=== PATIENT | female | born 1970 | race Caucasian/White ===

== ENCOUNTER 2017-09-10 23:57 | Emergency (ER) | payer OTHER ==
[2017-09-11] MEDS ORDERED: Lidocaine 1% PF 5 ML VIAL ONE (00:11)
[2017-09-11] MEDS ORDERED: Acetaminophen 500 MG TAB ONE (00:31)
[2017-09-11] MEDS ORDERED: Clindamycin 150 MG CAP ONE (00:31)
[2017-09-11] MEDS ORDERED: Adacel (T-DAP) 0.5 ML VIAL ONE (00:34)
== END 2017-09-11 00:58 | disposition home or self-care (01) ==
LOC: ERS 23:57
DX: L02.413 Cutaneous abscess of right upper limb (principal); L03.113 Cellulitis of right upper limb; G43.909 Migraine, unspecified, not intractable, without status migrainosus; J44.9 Chronic obstructive pulmonary disease, unspecified; F25.9 Schizoaffective disorder, unspecified; F31.9 Bipolar disorder, unspecified; F41.9 Anxiety disorder, unspecified
CPT/HCPCS: 10060; 90471; 90715; J2001

== ENCOUNTER 2018-02-17 08:25 | Inpatient (IN) | payer OTHER ==
[~2018-02-17 08:25] MED LIST: Glycopyrrolate 0.2 MG/ML 5 ML SYRINGE ONE; Lidocaine 1% PF 5 ML VIAL ONE; Ondansetron HCl/PF 4 MG/2 ML Vial ONE; PHENYLEPHRINE-NS 100 MCG/ML 10 ML SYRINGE ONE; Propofol 200 MG/20 ML VIAL ONE; Succinylcholine Chloride 20 MG/ML 10 ml SYRINGE FS ONE
[2018-02-17] MEDS ORDERED: Morphine 4 MG/ML VIAL ONE ×2 (09:11→10:47)
[2018-02-17] MEDS ORDERED: Ondansetron HCl/PF 4 MG/2 ML Vial ONE (09:21)
--- NOTE | 2018-02-17 11:02 | RAD ---
PORTABLE CHEST: Date: 02/17/18 COMPARISON: 06/11/15 study. HISTORY: Preop. FINDINGS: Heart size is within normal limits for portable technique. Mediastinal structures are unremarkable. L ungs are clear of infiltrates. IMPRESSION: No active intrathoracic disease. POS: [facility]
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
[2018-02-17] MEDS ORDERED: Fentanyl 100 MCG/2 ML VIAL ONE (12:32)
[2018-02-17] MEDS ORDERED: Lorazepam 2 MG/ML VIAL ONE (12:39)
[2018-02-17] MEDS ORDERED: Ondansetron ODT 4 MG TAB PO PRN (13:09)
[2018-02-17] MEDS ORDERED: Acetaminophen 325 MG TAB PO PRN (13:09)
[2018-02-17] MEDS ORDERED: Sodium Chloride 0.9% 1,000 ML IV SCH (13:15)
[2018-02-17] MEDS ORDERED: Nicotine 21 MG PATCH TD SCH (13:15)
[2018-02-17] MEDS ORDERED: Chlorhexidine Gluconate 15 ML UDCUP SSP ONE (13:16)
[2018-02-17] MEDS ORDERED: Fentanyl 250 MCG/5 ML VIAL ONE (13:18)
[2018-02-17] MEDS ORDERED: Lidocaine 2% w/Epinephrine 1:200K 20 ML VIAL ONE (13:34)
[2018-02-17 14:06] LABS: Hemoglobin A1c 10.7 % (4.0-6.0)
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
[2018-02-17] MEDS ORDERED: Bacitracin Zinc Ointment 30 gm TUBE ONE (14:54)
[2018-02-17] MEDS ORDERED: busPIRone HCl 5 MG TAB PO SCH (15:00)
[2018-02-17] MEDS ORDERED: Promethazine HCl 25 MG/ML VIAL IM PRN (15:29)
[2018-02-17] MEDS ORDERED: Ondansetron HCl/PF 4 MG/2 ML Vial IVP PRN (15:29)
[2018-02-17] MEDS ORDERED: Promethazine HCl 25 MG/ML VIAL SLOW IVP PRN (15:29)
--- NOTE | 2018-02-17 15:57 | OP ---
DATE OF PROCEDURE: 02/17/2018 PREOPERATIVE DIAGNOSES: 1. Facial abscess and cellulitis. 2. Dental decay. 3. Periodontal disease. POSTOPERATIVE DIAGNOSES: 1. Facial abscess and cellulitis. 2. Dental decay. 3. Periodontal disease. PROCEDURES PERFORMED: 1. Extraoral incision and drainage of right facial abscess. 2. Simple extraction of teeth numbers 3, 5, 6, 29, 30, and 31. ANESTHESIA: General, oral endotracheal anesthesia. INDICATIONS FOR PROCEDURE: This is a 47-year-old female with a 24-hour history of progressive facial swelling after reported popping a pimple on her right face. A CT scan revealed extensive right faci al cellulitis. laboratory data revealed a white blood cell count of 19 and a glucose level of 300. During her observation in the ER before admission was reported significant increase in extension of s welling and erythema with palpable fluctuance indicating the surgical intervention. The risks, benef its, and alternatives of the procedure were discussed in detail with the patient. Questions were andreia ght and answered. She agreed and consented to incision and drainage of facial abscess and extraction of indicated teeth. PROCEDURE PERFORMED: The patient was transferred to operating room by Anesthesia nursing to the [facility] where a safety belt was secured, standard ASA monitor attached and this patient was noted to hav e stable vital signs. IV induction by Anesthesia with oral endotracheal intubation without complicat ion, was performed using a GlideScope. The tube was secured in a standard fashion. The patient was prepped and draped in a sterile fashion. A timeout was performed. I began by thoroughly suctioning the oropharynx and moistened Ray-Brandon throat pack was placed. Peride x mouth rinse was used throughout the oral cavity and an elevator and rongeur were used for extractio n of retained roots of teeth numbers 3, 5, 6, 29, 30, and 31. There was no noted purulence from any of the sockets were associated gingival inflammation. There was palpable edema high within the maxil sergey vestibule and a 15 blade was used for horizontal incision with blunt subperiosteal dissection wi th no purulence in this plane. We then went extraorally where a 15 blade was used to make a stab inc ision over the scab that was present on the previous reported popped pimple on the right malar eminen ce with immediate purulence from the wound. This was cultured. Then, blunt dissection with a closed hemostat was gently performed with significant amount of purulence from the right buccal soft tissue s. Copious irrigation of the wound was performed. A 15 blade was then used again intraorally in the right buccal mucosa well away from Stensen's duct with blunt lateral dissection without any purulent drainage. The oropharynx was thoroughly suctioned. A moistened Ray-Brandon throat pack was removed. G auze pack was placed for hemostasis of the extraction sites and quarter inch gauze soaked in bacitrac in was packed within the extraoral facial wound. This concluded the procedure. The patient was turn ed away to Anesthesia where she was extubated in the room and returned to the PACU in stable conditio n. DRAINS: None. SPECIMENS: Aerobic and anaerobic cultures sent from facial abscess. COUNTS: Needle, sponge count verified as correct. COMPLICATIONS: None. FLUIDS: Blood loss. See anesthesia records.
[2018-02-17] MEDS ORDERED: Dextrose 5% in Water 1,000 ML IV PRN (17:12)
[2018-02-17] MEDS ORDERED: Albuterol Sulfate 1.25 MG/3 ML NEB NEB PRN (17:12)
[2018-02-17] MEDS ORDERED: Dextrose 50% Abboject 50 ML SYRINGE SLOW IVP PRN (17:12)
[2018-02-17 17:22] VITALS: BMI 38.3
[2018-02-17] MEDS ORDERED: metFORMIN 500 MG TAB PO SCH (17:45)
[2018-02-17] MEDS ORDERED: FLU VACC QS2017-18 36 mo. & older 0.5 ML SYRINGE IM ONE (18:00)
[2018-02-17] MEDS ORDERED: Ibuprofen 800 MG TAB PO SCH (18:45)
[2018-02-17] MEDS: Chlorhexidine Gluconate 15 ML UDCUP SSP SCH (20:12)
[2018-02-18] MEDS ORDERED: Vancomycin HCl 1 GM in Premix Bag 1 BAG IVPB SCH (01:00)
[2018-02-18 05:27] LABS: #Basophils 0.1 thou/uL (0.0-0.2); #Eosinphils 0.2 thou/uL (0.0-0.7); #Lymphocytes 2.7 thou/uL (1.20-3.40); #Monocytes 1.7 thou/uL (0.11-0.59); #Neutrophils 11.4 thou/uL (1.40-6.50); %Basophils 0.6 % (0.0-1.0); %Eosinophils 1.4 % (0.0-10.0); %Monocytes 10.2 % (0.0-10.0); %Neutrophils 70.8 % (42.0-75.0); Hemoglobin 12.2 g/dL (12.0-16.0); Mean Corpuscular HGB CONC 33.1 g/dL (32.0-36.0); Mean Corpuscular Hemoglobin 30.1 pg (27.0-31.0); Mean Corpuscular Volume 90.8 fl (81.0-99.0); Mean Platelet Volume 8.8 fL (7.4-10.4); Platelet Count 227 thou/uL (130-400); RBC Distribution Width 12.7 % (11.5-14.5); Red Blood Cell (RBC) Count 4.05 mill/uL (4.20-5.40); White Blood Cell (WBC) Count 16.2 thou/uL (4.8-10.8)
[2018-02-18 05:31] LABS: Anion Gap 9 mmol/L (10-20); BUN (Urea Nitrogen) 9 mg/dL (7.0-18.7); Calc. Creatinine Clearance 148 mL/min (70-130); Calcium 9.1 mg/dL (7.8-10.44); Carbon Dioxide 30 mmol/L (22-29); Chloride 100 mmol/L (98-107); Estimated GFR-MDRD 86; Glucose 164 mg/dL (70-105); Potassium 3.4 mmol/L (3.5-5.1); Sodium 136 mmol/L (136-145)
--- NOTE | 2018-02-18 06:48 | PDOC.FM ---
- Subjective Subjective: Patient is restless this morning. She reports moderate pain all over. She denies significant draining or bleeding in her mouth. New diagnosis of diabetes was discussed in length. All questions answered. DENNIS. - Objective MAR Reviewed: Yes Vital Signs & Weight: Vital Signs (12 hours) Temp Pulse Resp BP Pulse Ox 02/18/18 04:00 98.4 F 87 20 107/69 94 L 02/18/18 00:00 99.3 F 93 20 105/75 95 02/17/18 20:10 94 02/17/18 20:00 99.7 F H 94 20 119/72 95 Weight Weight 98.2 kg I&O: 02/16/18 02/17/18 02/18/18 06:59 06:59 06:59 Intake Total 1999 Balance 1999 Result Diagrams: 02/18/18 04:54 02/18/18 04:54 Phys Exam - Physical Examination restless, in pain continued facial swelling with bandage in place, no purulent drainage from either incision Respiratory: no rales mild expiratory wheezing at bases Cardiovascular: RRR, no significant murmur Gastrointestinal: soft, non-tender, no distention Musculoskeletal: no edema Neurological: moves all 4 limbs Psychiatric: A&O x 3 Dx/Plan (1) Sepsis Code(s): A41.9 - SEPSIS, UNSPECIFIED ORGANISM Status: Acute (2) Facial cellulitis Code(s): L03.211 - CELLULITIS OF FACE Status: Acute (3) Abscess of face Code(s): L02.01 - CUTANEOUS ABSCESS OF FACE Status: Acute (4) Hypertension Code(s): I10 - ESSENTIAL (PRIMARY) HYPERTENSION Status: Chronic (5) Bipolar disorder Code(s): F31.9 - BIPOLAR DISORDER, UNSPECIFIED Status: Chronic (6) Schizoaffective disorder Code(s): F25.9 - SCHIZOAFFECTIVE DISORDER, UNSPECIFIED Status: Chronic (7) Chronic obstructive pulmonary disease Status: Chronic (8) Gastroesophageal reflux disease Code(s): K21.9 - GASTRO-ESOPHAGEAL REFLUX DISEASE WITHOUT ESOPHAGITIS Status: Chronic - Plan Plan: Sepsis 2/2 Facial Cellulitis and Possible Abscess - Patient failed outpatient Clindamycin, will continue Vancomycin for MRSA coverage. - s/p surgical I&D with Dr. Charles - WBC elevated to 19, downtrending with WBC of 16 today - Blood cx pending, wound culture pending - Nasal swab pending for MRSA colonization with recent hx of shoudler abscess as well. - Pain management with Ibuprofen and [place]. - s/p 2L bolus of NS, continue NS @ 150 New Diagnosis of T2DM - HgA1c 10.7 - SSI ordered but none given - overnight BS of 389 at its peak. 164 this morning - plan to start Levemir this am - consult laboratory technician for diabetic education - ACHS accuchecks COPD - not currently on any home inhalers - normal lung exam - will give albuterol prn MAG - not on CPAP at home but reports she is supposed to be - CPAP ordered Bipolar DO/Schizophrenia - patient sees [facility] for her behavioral health, but has not been on any meds since 08/2017 - Continue Buspar and monitor GERD - continue home protonix Tobacco Use - claims counsel on cessation
[2018-02-18] MEDS ORDERED: Venlafaxine HCl XR 75 MG CAP PO SCH (09:00)
[2018-02-18] MEDS: HYDROcodone/Acetaminophen 5/325 mg Tablet PO PRN ×3 (09:21→17:29)
[2018-02-18] MEDS: metFORMIN 500 MG TAB PO SCH ×2 (09:23→16:08)
[2018-02-18] MEDS: Chlorhexidine Gluconate 15 ML UDCUP SSP SCH ×2 (09:24→20:02)
[2018-02-18] MEDS: busPIRone HCl 10 MG TAB PO SCH ×3 (09:24→20:02)
[2018-02-18] MEDS: Nicotine 21 MG PATCH TD SCH (09:25)
[2018-02-18] MEDS: Vancomycin HCl 1 GM in Premix Bag 1 BAG IVPB SCH ×2 (09:26→20:02)
[2018-02-18] MEDS ORDERED: Potassium Chloride 20 MEQ TAB PO SCH (10:15)
[2018-02-18] MEDS: Sodium Chloride 0.9% 1,000 ML IV SCH ×2 (11:44→17:35)
[2018-02-18] MEDS: Clindamycin/D5W 600 MG in Premix Bag 1 BAG IVPB SCH ×2 (13:20→20:07)
--- NOTE | 2018-02-18 14:22 | ADD-PRG ---
DATE OF SERVICE: 02/18/2018 This is an addendum to the note of Dr. Suri Parra. Ms. Arizmendi is a pleasant 47-year-old female wh o was admitted yesterday with a facial abscess. She was taken to surgery last night with incision an d drainage of the abscesses and is currently on intravenous antibiotics. Cultures are already growin g out Staph aureus and she is on intravenous vancomycin. We will also add intravenous Cleocin to cov er anaerobes. She was just discovered to have type 2 diabetes and we have instituted therapy with me tformin and Lantus insulin. We will continue current measures for at least one more day.
[2018-02-18] MEDS: HumaLOG 300 UNITS/3 ML VIAL SC PRN ×2 (14:35→16:08)
--- NOTE | 2018-02-18 19:54 | PRG ---
DATE OF SERVICE: 02/18/2018 SUBJECTIVE: The patient is sitting upright at bedside in no acute distress, reports that she feels s omewhat better today, but still feels some tightness and pain along the right side of her face. No d ifficulty swallowing, no intraoral complaints. OBJECTIVE: VITAL SIGNS: Stable, afebrile. HEENT: Continued edema, generalized along the right face and periorbital region consistent with an e xisting infection as well as postoperative edema, erythema still exists, generalized along the right side of face. A wound packing was advanced and copious amounts of purulence were milked from the wou nd. There is no extension below the inferior border of the mandible or along the neck or posterior t o the angle of the mandible. LABORATORY DATA: White blood cell count down to 16 today. ASSESSMENT: This is a 47-year-old female, postoperative day #1, status post incision and drainage of facial abscess. PLAN: Continue IV vancomycin and supportive therapy. Pending cultures will be followed.
[2018-02-18] MEDS: Ibuprofen 800 MG TAB PO PRN (20:06)
[2018-02-19] MEDS: HYDROcodone/Acetaminophen 5/325 mg Tablet PO PRN ×6 (01:10→22:38)
[2018-02-19] MEDS: Sodium Chloride 0.9% 1,000 ML IV SCH ×3 (01:11→16:05)
[2018-02-19] MEDS: HumaLOG 300 UNITS/3 ML VIAL SC PRN ×2 (04:30→11:27)
[2018-02-19] MEDS: Ibuprofen 800 MG TAB PO PRN ×2 (04:30→21:21)
[2018-02-19] MEDS: Clindamycin/D5W 600 MG in Premix Bag 1 BAG IVPB SCH ×3 (05:37→21:21)
[2018-02-19 05:49] LABS: #Eosinphils 0.4 thou/uL (0.0-0.7); #Lymphocytes 1.9 thou/uL (1.20-3.40); #Monocytes 0.7 thou/uL (0.11-0.59); #Neutrophils 6.4 thou/uL (1.40-6.50); %Basophils 0.4 % (0.0-1.0); %Eosinophils 3.8 % (0.0-10.0); %Lymphocytes 20.3 % (21.0-51.0); %Monocytes 7.7 % (0.0-10.0); %Neutrophils 67.8 % (42.0-75.0); Hemoglobin 11.3 g/dL (12.0-16.0); Mean Corpuscular HGB CONC 31.2 g/dL (32.0-36.0); Mean Corpuscular Hemoglobin 29.2 pg (27.0-31.0); Mean Corpuscular Volume 93.7 fl (81.0-99.0); Mean Platelet Volume 9.3 fL (7.4-10.4); Platelet Count 206 thou/uL (130-400); RBC Distribution Width 12.6 % (11.5-14.5); Red Blood Cell (RBC) Count 3.86 mill/uL (4.20-5.40); White Blood Cell (WBC) Count 9.5 thou/uL (4.8-10.8)
[2018-02-19 06:08] LABS: Anion Gap 9 mmol/L (10-20); BUN (Urea Nitrogen) 13 mg/dL (7.0-18.7); Calc. Creatinine Clearance 157 mL/min (70-130); Calcium 8.8 mg/dL (7.8-10.44); Carbon Dioxide 27 mmol/L (22-29); Chloride 103 mmol/L (98-107); Estimated GFR-MDRD Greater than 90; Glucose 148 mg/dL (70-105); Potassium 3.8 mmol/L (3.5-5.1); Sodium 135 mmol/L (136-145)
--- NOTE | 2018-02-19 06:19 | PDOC.FM ---
- Subjective Subjective: Mrs. Arizmendi is doing okay this morning. She states that the right side of her face is causing her discomfort, about the same as yesterday. She feels like the pain is more inferior below the jaw bone. Denies fever, but she endorses sweats and nausea. Denies vomiting, chest pain, dyspnea. - Objective MAR Reviewed: Yes Vital Signs & Weight: Vital Signs (12 hours) Temp Pulse Resp BP Pulse Ox 02/18/18 20:00 98.1 F 99 20 119/64 96 Weight Weight 98.2 kg I&O: 02/17/18 02/18/18 02/19/18 06:59 06:59 06:59 Intake Total 1999 Result Diagrams: 02/19/18 05:25 02/19/18 05:25 <Iam Bustos - Last Filed: 02/19/18 11:10> - Objective Vital Signs & Weight: Weight Admit Weight 98.2 kg Weight 98.2 kg I&O: 02/18/18 02/19/18 02/20/18 06:59 06:59 06:59 Intake Total 1999 2119 2089 Balance 1999 2119 2089 Result Diagrams: 02/19/18 05:25 02/19/18 05:25 <Manjula Cobian - Last Filed: 02/19/18 21:41> Phys Exam - Physical Examination Constitutional: NAD HEENT: moist MMs, sclera anicteric erythema and swelling appear improved from previous exams, bandage in place Neck: no JVD, full ROM Respiratory: no wheezing, no rales, no rhonchi, clear to auscultation bilateral Cardiovascular: RRR, no significant murmur, no rub Gastrointestinal: soft, non-tender, positive bowel sounds Musculoskeletal: no edema, pulses present Neurological: non-focal, moves all 4 limbs Psychiatric: normal affect, A&O x 3 Skin: no rash <Iam Bustos - Last Filed: 02/19/18 11:10> Dx/Plan (1) Abscess of face Code(s): L02.01 - CUTANEOUS ABSCESS OF FACE Status: Acute (2) Facial cellulitis Code(s): L03.211 - CELLULITIS OF FACE Status: Acute (3) Sepsis Code(s): A41.9 - SEPSIS, UNSPECIFIED ORGANISM Status: Resolved (4) Bipolar disorder Code(s): F31.9 - BIPOLAR DISORDER, UNSPECIFIED Status: Chronic (5) Chronic obstructive pulmonary disease Status: Chronic (6) Gastroesophageal reflux disease Code(s): K21.9 - GASTRO-ESOPHAGEAL REFLUX DISEASE WITHOUT ESOPHAGITIS Status: Chronic (7) Hypertension Code(s): I10 - ESSENTIAL (PRIMARY) HYPERTENSION Status: Chronic (8) Schizoaffective disorder Code(s): F25.9 - SCHIZOAFFECTIVE DISORDER, UNSPECIFIED Status: Chronic - Plan Plan: Sepsis 2/2 Facial Cellulitis and Possible Abscess - Patient failed outpatient Clindamycin, will continue Vancomycin for MRSA coverage. - s/p surgical I&D with Dr. Charles - WBC elevated to 19 on admission, downtrending with WBC of 16 yesterday and 9.5 today. - Blood cx pending, wound culture grew staph aureus, susceptibilities pending - Nasal swab pending for MRSA colonization with recent hx of shoudler abscess as well. - Pain management with Ibuprofen and [place]. - s/p 2L bolus of NS, continue NS @ 150 New Diagnosis of T2DM - HgA1c 10.7 - SSI ordered but none given - overnight BS of 389 at its peak. 164 this morning - starting levemir this morning - patient has received diabetic diet education from records management coordinator - monitor ACHS accuchecks COPD - not currently on any home inhalers - normal lung exam - will give albuterol prn MAG - not on CPAP at home but reports she is supposed to be - CPAP ordered Bipolar DO/Schizophrenia - patient sees [facility] for her behavioral health, but has not been on any meds since 08/2017 - Continue Buspar and monitor GERD - continue home protonix Tobacco Use - herb counselor on cessation <Iam Bustos - Last Filed: 02/19/18 11:10> Attending Addendum - Attending Addendum Date/Time: 02/19/18 237 I personally evaluated the patient and discussed the management with Dr. Bustos. I agree with the History, Examination, Assessment and Plan documented above with any addition or exceptions noted below. The patient remains on IV vancomycin. s/p I&D of facial abscsess. Swelling is a little improved, packing in place. Pt still has pain but in a smaller area today. <Aranza,Manjula - Last Filed: 02/19/18 21:41>
[2018-02-19] MEDS ORDERED: Fluconazole 100 MG TAB PO ONE (09:00)
[2018-02-19] MEDS ORDERED: Insulin Detemir 100 UNITS/ML 10 UNITS in Pre-Filled Syringe 1 EACH SC SCH (09:00)
[2018-02-19] MEDS: busPIRone HCl 10 MG TAB PO SCH ×3 (09:29→22:03)
[2018-02-19] MEDS: metFORMIN 500 MG TAB PO SCH ×2 (09:30→16:03)
[2018-02-19] MEDS: Nicotine 21 MG PATCH TD SCH (09:31)
[2018-02-19] MEDS: Vancomycin HCl 1 GM in Premix Bag 1 BAG IVPB SCH ×2 (09:34→21:13)
[2018-02-19] MEDS: Chlorhexidine Gluconate 15 ML UDCUP SSP SCH ×2 (09:42→21:15)
[2018-02-19] MEDS ORDERED: Fluconazole 100 MG TAB PO SCH (10:30)
[2018-02-19] MEDS: Ondansetron HCl/PF 4 MG/2 ML Vial IVP PRN ×2 (14:21→21:13)
--- NOTE | 2018-02-19 18:07 | PRG ---
DATE OF SERVICE: 02/19/2018 SUBJECTIVE: No acute 24 hour events. The patient is voiding, ambulating, tolerating p.o., still complains of discomfort in the right cheek, neck area; however, that she feels it is slightly decreased from yesterday. OBJECTIVE: VITAL SIGNS: The patient's vital signs have been stable in the last 24 hours. She has had no fevers. Her T-max being 98.2, T-current is 97.8. Pulse of 89, respirations 16, satting 92% on room air, blood pressure is 97/56. She is sitting up at the bedside, currently eating a large tray of food. HEENT: Her opening is good. She does have a very large right firm cellulitic swelling with minimal purulent drainage from packing of the external right cheek. This swelling and erythema extends down below the angle of the right mandible, but is soft below the angle of the right mandible. She reports no difficulty swallowing or breathing. LABORATORY DATA: Her white count today was 9.5, down from 16.2 yesterday. There is no left shift. ASSESSMENT: Patient is status post incision and drainage of a facial abscess with cultures positive for MRSA. PLAN: The plan will be to continue vancomycin IV, as there is a large amount of cellulitis this may need a prolonged antibiotic therapy. We will continue to follow. LUCIANA
[2018-02-19] MEDS: Vancomycin HCl 1.5 GM in Sodium Chloride 0.9% 250 ML 300 ML IVPB SCH (21:21)
[2018-02-20 05:11] LABS: #Basophils 0.1 thou/uL (0.0-0.2); #Eosinphils 0.4 thou/uL (0.0-0.7); #Monocytes 0.7 thou/uL (0.11-0.59); #Neutrophils 3.9 thou/uL (1.40-6.50); %Eosinophils 5.1 % (0.0-10.0); %Lymphocytes 28.8 % (21.0-51.0); %Monocytes 9.4 % (0.0-10.0); %Neutrophils 55.7 % (42.0-75.0); Hemoglobin 10.7 g/dL (12.0-16.0); Mean Corpuscular HGB CONC 32.2 g/dL (32.0-36.0); Mean Corpuscular Hemoglobin 29.9 pg (27.0-31.0); Mean Corpuscular Volume 92.6 fl (81.0-99.0); Mean Platelet Volume 8.5 fL (7.4-10.4); Platelet Count 210 thou/uL (130-400); RBC Distribution Width 12.3 % (11.5-14.5); Red Blood Cell (RBC) Count 3.58 mill/uL (4.20-5.40); White Blood Cell (WBC) Count 6.9 thou/uL (4.8-10.8)
[2018-02-20 05:26] LABS: Anion Gap 7 mmol/L (10-20); BUN (Urea Nitrogen) 10 mg/dL (7.0-18.7); Calc. Creatinine Clearance 159 mL/min (70-130); Calcium 8.8 mg/dL (7.8-10.44); Carbon Dioxide 31 mmol/L (22-29); Chloride 104 mmol/L (98-107); Estimated GFR-MDRD Greater than 90; Glucose 120 mg/dL (70-105); Sodium 138 mmol/L (136-145)
--- NOTE | 2018-02-20 05:31 | PDOC.FM ---
- Subjective Subjective: Mrs. Arizmendi seen at bedside this morning. She states that she is still having facial pain, more in the lower jaw and near the ear. Pain is not as bad as before but it still present. Patient states that she is feeling better than she did yesterday. She denies any fever, chills, chest pain, dyspnea, n/v/d. - Objective MAR Reviewed: Yes Vital Signs & Weight: Vital Signs (12 hours) Temp Pulse Resp BP Pulse Ox 02/19/18 20:43 98.2 F 90 20 95 02/19/18 20:00 98.2 F 90 20 136/80 95 Weight Admit Weight 98.2 kg Weight 98.2 kg I&O: 02/18/18 02/19/18 02/20/18 06:59 06:59 06:59 Intake Total 1999 2119 2089 Balance 1999 2119 2089 Result Diagrams: 02/20/18 04:51 02/20/18 04:51 <Iam Bustos - Last Filed: 02/20/18 06:33> - Objective Vital Signs & Weight: Vital Signs (12 hours) Temp Pulse Resp BP Pulse Ox 02/20/18 08:00 97.5 F L 73 20 140/88 94 L Weight Admit Weight 98.2 kg Weight 98.2 kg I&O: 02/19/18 02/20/18 02/21/18 06:59 06:59 06:59 Intake Total 2119 4001 Balance 2119 4001 Result Diagrams: 02/20/18 04:51 02/20/18 04:51 <Manjula Cobian - Last Filed: 02/20/18 16:06> Phys Exam - Physical Examination Constitutional: NAD HEENT: moist MMs, sclera anicteric R sided facial swelling and erythema about the same as yesterday Neck: supple, full ROM Respiratory: no wheezing, no rales, no rhonchi, clear to auscultation bilateral Cardiovascular: RRR, no significant murmur Gastrointestinal: soft, non-tender, no distention Musculoskeletal: no edema, pulses present Neurological: non-focal, moves all 4 limbs Psychiatric: normal affect, A&O x 3 Skin: no rash <Iam Bustos - Last Filed: 02/20/18 06:33> Dx/Plan (1) Abscess of face Code(s): L02.01 - CUTANEOUS ABSCESS OF FACE Status: Acute (2) Facial cellulitis Code(s): L03.211 - CELLULITIS OF FACE Status: Acute (3) Sepsis Code(s): A41.9 - SEPSIS, UNSPECIFIED ORGANISM Status: Resolved (4) Bipolar disorder Code(s): F31.9 - BIPOLAR DISORDER, UNSPECIFIED Status: Chronic (5) Chronic obstructive pulmonary disease Status: Chronic (6) Gastroesophageal reflux disease Code(s): K21.9 - GASTRO-ESOPHAGEAL REFLUX DISEASE WITHOUT ESOPHAGITIS Status: Chronic (7) Hypertension Code(s): I10 - ESSENTIAL (PRIMARY) HYPERTENSION Status: Chronic (8) Schizoaffective disorder Code(s): F25.9 - SCHIZOAFFECTIVE DISORDER, UNSPECIFIED Status: Chronic - Plan Plan: Sepsis 2/2 Facial Cellulitis and Possible Abscess - Patient failed outpatient Clindamycin. - s/p surgical I&D with Dr. Charles - WBC elevated to 19 on admission, downtrending with WBC of 16 yesterday and 6.9 today. - Blood cx pending, wound culture grew MRSA, sensitive to vancomycin - Nasal swab pending for MRSA colonization with recent hx of shoudler abscess as well. - Pain management with Ibuprofen and [place]. - will d/c IVFs today, tolerating PO New Diagnosis of T2DM - HgA1c 10.7 - SSI ordered but none given - started levemir yesterday morning, blood sugars have been more controlled since, fasting of 120 this morning - patient has received diabetic diet education from planing machine operator - monitor ACHS accuchecks COPD - not currently on any home inhalers - normal lung exam - will give albuterol prn MAG - not on CPAP at home but reports she is supposed to be - CPAP ordered Bipolar DO/Schizophrenia - patient sees [facility] for her behavioral health, but has not been on any meds since 08/2017 - Continue Buspar and monitor GERD - continue home protonix Tobacco Use - corporate counselor on cessation <Iam Bustos - Last Filed: 02/20/18 06:33> Attending Addendum - Attending Addendum Date/Time: 02/20/18 4490 I personally evaluated the patient and discussed the management with Dr. Bustos. I agree with the History, Examination, Assessment and Plan documented above with any addition or exceptions noted below. The patient still has facial pain but notes she feels a little better. The patient will continue IV vancomycin. Tolerating po, will stop IVF. <Manjula Cobian - Last Filed: 02/20/18 16:06>
[2018-02-20] MEDS: Clindamycin/D5W 600 MG in Premix Bag 1 BAG IVPB SCH (05:42)
[2018-02-20] MEDS: Sodium Chloride 0.9% 1,000 ML IV SCH (05:43)
[2018-02-20] MEDS: HYDROcodone/Acetaminophen 5/325 mg Tablet PO PRN ×4 (05:44→20:44)
[2018-02-20] MEDS ORDERED: Insulin Detemir 100 UNITS/ML 15 UNITS in Pre-Filled Syringe 1 EACH SC SCH ×4 (09:00)
[2018-02-20] MEDS ORDERED: Insulin Detemir 100 UNITS/ML 10 UNITS in Pre-Filled Syringe 1 EACH SC SCH (09:00)
[2018-02-20] MEDS: Chlorhexidine Gluconate 15 ML UDCUP SSP SCH ×2 (09:15→20:44)
[2018-02-20] MEDS: busPIRone HCl 10 MG TAB PO SCH ×3 (09:16→20:44)
[2018-02-20] MEDS: Nicotine 21 MG PATCH TD SCH (09:16)
[2018-02-20] MEDS: metFORMIN 500 MG TAB PO SCH ×2 (09:17→16:14)
[2018-02-20] MEDS: Vancomycin HCl 1.5 GM in Sodium Chloride 0.9% 250 ML 300 ML IVPB SCH ×2 (09:17→20:43)
--- NOTE | 2018-02-20 10:57 | PRG ---
DATE OF SERVICE: 02/20/2018 SUBJECTIVE: No acute 24-hour events. The patient is lying in bed, no complaints of difficulty swallowing or opening. The patient is voiding, ambulating, taking an excellent p.o. The patient is postoperative day #3 status post I&D of right facial abscess and found to grow methicillin-resistant Staph aureus. The patient is having daily packing changes by Wound Care. OBJECTIVE: VITAL SIGNS: T-current 97.5, pulse 73, respirations 12, sating 94% on room air , blood pressure 140/88. GENERAL: She is awake, alert, oriented x3. She is in no acute distress. Oral opening is good. HEENT: She still does have quite a bit of a cellulitis of the right cheek and neck; however, softening up compared to yesterday and is slightly decreased compared to yesterday. Previous right facial incision is draining moderate amounts of foul-smelling pus. Her dressing currently is soaked in pus. LABORATORY DATA: White count today 6.9, down from 9.5 yesterday. There is no left shift. Her blood sugars are under much better control with a high of 163 over the last 24 hours. ASSESSMENT: The patient does appear to be improving status post I&D of right facial cellulitis and abscess. PLAN: Once again, this is a quite significant facial abscess and would like to continue inpatient IV antibiotics and follow for continued improvement. LUCIANA
[2018-02-20] MEDS: Ibuprofen 800 MG TAB PO PRN ×2 (11:15→23:35)
[2018-02-20 20:30] LABS: Vancomycin, Trough 12.2 ug/mL
[2018-02-21] MEDS: HYDROcodone/Acetaminophen 5/325 mg Tablet PO PRN ×6 (01:03→23:42)
[2018-02-21] MEDS: Ondansetron HCl/PF 4 MG/2 ML Vial IVP PRN ×2 (05:29→16:44)
[2018-02-21 05:50] LABS: #Eosinphils 0.4 thou/uL (0.0-0.7); #Lymphocytes 2.1 thou/uL (1.20-3.40); #Monocytes 0.8 thou/uL (0.11-0.59); #Neutrophils 6.2 thou/uL (1.40-6.50); %Basophils 0.4 % (0.0-1.0); %Eosinophils 3.9 % (0.0-10.0); %Lymphocytes 21.9 % (21.0-51.0); %Monocytes 8.4 % (0.0-10.0); %Neutrophils 65.5 % (42.0-75.0); Hemoglobin 11.3 g/dL (12.0-16.0); Mean Corpuscular HGB CONC 31.9 g/dL (32.0-36.0); Mean Corpuscular Hemoglobin 29.1 pg (27.0-31.0); Mean Corpuscular Volume 91.3 fl (81.0-99.0); Mean Platelet Volume 9.1 fL (7.4-10.4); Platelet Count 199 thou/uL (130-400); RBC Distribution Width 12.5 % (11.5-14.5); White Blood Cell (WBC) Count 9.4 thou/uL (4.8-10.8)
[2018-02-21 06:01] LABS: Anion Gap 12 mmol/L (10-20); BUN (Urea Nitrogen) 9 mg/dL (7.0-18.7); Calc. Creatinine Clearance 155 mL/min (70-130); Calcium 8.9 mg/dL (7.8-10.44); Carbon Dioxide 28 mmol/L (22-29); Chloride 102 mmol/L (98-107); Estimated GFR-MDRD Greater than 90; Glucose 105 mg/dL (70-105); Potassium 4.2 mmol/L (3.5-5.1); Sodium 138 mmol/L (136-145)
--- NOTE | 2018-02-21 08:48 | PDOC.FM ---
- Subjective Subjective: 47 yo F with new dx of DMII here for facial abscess s/p I&D. Doing well this morning with no specific complaints. She states that she has not been out of bed for the past day, but will walk w/PT/Walking program today. She denies any new symptoms currently though was nauseous last night. There were no acute events over night. - Objective MAR Reviewed: Yes Vital Signs & Weight: Vital Signs (12 hours) Pulse Resp Pulse Ox 02/20/18 22:37 91 12 94 L Weight Admit Weight 98.2 kg Weight 98.2 kg I&O: 02/20/18 02/21/18 02/22/18 06:59 06:59 06:59 Intake Total 4002 3020 Balance 4002 3020 Result Diagrams: 02/21/18 05:14 02/21/18 05:14 <Huey Cook - Last Filed: 02/21/18 08:46> - Objective Vital Signs & Weight: Vital Signs (12 hours) Temp Pulse Resp BP Pulse Ox 02/21/18 08:00 98 F 77 18 157/86 H 92 L Weight Admit Weight 98.2 kg Weight 98.2 kg I&O: 02/20/18 02/21/18 02/22/18 06:59 06:59 06:59 Intake Total 4002 3020 Balance 4002 3020 Result Diagrams: 02/21/18 05:14 02/21/18 05:14 <Angela Lua - Last Filed: 02/21/18 16:10> Phys Exam - Physical Examination Constitutional: NAD HEENT: PERRLA, moist MMs Dressing on right mandible/maxilla in place and clean Neck: full ROM Respiratory: clear to auscultation bilateral Cardiovascular: RRR, no significant murmur Gastrointestinal: soft, non-tender, no distention, positive bowel sounds Musculoskeletal: no edema Neurological: non-focal, moves all 4 limbs Psychiatric: normal affect, A&O x 3 Skin: no rash <Huey Cook - Last Filed: 02/21/18 08:46> Dx/Plan (1) Abscess of face Code(s): L02.01 - CUTANEOUS ABSCESS OF FACE Status: Acute (2) Bipolar 1 disorder Code(s): F31.9 - BIPOLAR DISORDER, UNSPECIFIED Status: Chronic (3) Facial cellulitis Code(s): L03.211 - CELLULITIS OF FACE Status: Acute (4) Chronic obstructive pulmonary disease Status: Chronic (5) Gastroesophageal reflux disease Code(s): K21.9 - GASTRO-ESOPHAGEAL REFLUX DISEASE WITHOUT ESOPHAGITIS Status: Chronic (6) Hypertension Code(s): I10 - ESSENTIAL (PRIMARY) HYPERTENSION Status: Chronic (7) Schizoaffective disorder Code(s): F25.9 - SCHIZOAFFECTIVE DISORDER, UNSPECIFIED Status: Chronic (8) Sepsis Code(s): A41.9 - SEPSIS, UNSPECIFIED ORGANISM Status: Resolved - Plan Plan: Sepsis 2/2 Facial Cellulitis and Possible Abscess - Patient failed outpatient Clindamycin and is now s/p surgical I&D with Dr. Charles - WBC elevated to 19 on admission, now WNL and stable - Blood cx negative, wound culture grew MRSA, sensitive to vancomycin - Nasal swab pending for MRSA colonization with recent hx of shoulder abscess as well. - Pain management with Ibuprofen and [place]. - Vanc trough was low, will increase dose and repeat trough before 4th dose - Will move to PO based on OMFS recs New Diagnosis of T2DM - HgA1c 10.7 - started levemir w/SSI, blood sugars have been more controlled since - patient has received diabetic diet education from roof designer - monitor ACHS accuchecks - Outpt management recommended COPD - not currently on any home inhalers - normal lung exam - will give albuterol prn MAG - not on CPAP at home but reports she is supposed to be - CPAP ordered, pt did not wear it last night Bipolar DO/Schizophrenia - patient sees [facility] for her behavioral health, but has not been on any meds since 08/2017 - Continue Buspar and monitor GERD - continue home protonix Tobacco Use - counseling aide on cessation <Huey Cook - Last Filed: 02/21/18 08:46> Attending Addendum - Attending Addendum Date/Time: 02/21/18 8018 I personally evaluated the patient and discussed the management with Dr. Cook and Dr. Baum I agree with the History, Examination, Assessment and Plan documented above with any addition or exceptions noted below. Continue currently plan. Needs more time on Vanc. Will increase dose based on trough value. Juan <Angela Lua - Last Filed: 02/21/18 16:10>
[2018-02-21] MEDS: Ibuprofen 800 MG TAB PO PRN ×2 (09:06→19:25)
[2018-02-21] MEDS: Chlorhexidine Gluconate 15 ML UDCUP SSP SCH ×2 (09:07→19:24)
[2018-02-21] MEDS: Nicotine 21 MG PATCH TD SCH (09:07)
[2018-02-21] MEDS: busPIRone HCl 10 MG TAB PO SCH ×3 (09:08→19:25)
[2018-02-21] MEDS: metFORMIN 500 MG TAB PO SCH ×2 (09:32→16:45)
[2018-02-21] MEDS: Vancomycin HCl 1.75 GM in Sodium Chloride 0.9% 500 ML IVPB SCH ×2 (10:25→20:47)
[2018-02-21] MEDS: Insulin Detemir 100 UNITS/ML 10 UNITS in Pre-Filled Syringe 1 EACH SC SCH (10:32)
[2018-02-21] MEDS: Vancomycin HCl 1.5 GM in Sodium Chloride 0.9% 250 ML 300 ML IVPB SCH (12:16)
[2018-02-21 18:10] LABS: Folate,Hemolysate 439.7 ng/mL (Not Estab.); Hematocrit 33.3 % (34.0-46.6); RBC Folate Test Component 1320 ng/mL (>498)
[2018-02-22] MEDS: Ibuprofen 800 MG TAB PO PRN (04:47)
[2018-02-22] MEDS: Fioricet 325/50/40 mg Tablet PO PRN ×2 (04:48→13:46)
[2018-02-22 05:01] LABS: #Basophils 0.1 thou/uL (0.0-0.2); #Eosinphils 0.4 thou/uL (0.0-0.7); #Lymphocytes 2.1 thou/uL (1.20-3.40); #Monocytes 0.8 thou/uL (0.11-0.59); #Neutrophils 5.1 thou/uL (1.40-6.50); %Basophils 0.6 % (0.0-1.0); %Eosinophils 4.3 % (0.0-10.0); %Lymphocytes 24.6 % (21.0-51.0); %Monocytes 9.1 % (0.0-10.0); %Neutrophils 61.5 % (42.0-75.0); Hemoglobin 11.4 g/dL (12.0-16.0); Mean Corpuscular HGB CONC 33.2 g/dL (32.0-36.0); Mean Corpuscular Hemoglobin 30.1 pg (27.0-31.0); Mean Corpuscular Volume 90.5 fl (81.0-99.0); Mean Platelet Volume 8.3 fL (7.4-10.4); Platelet Count 224 thou/uL (130-400); RBC Distribution Width 12.3 % (11.5-14.5); Red Blood Cell (RBC) Count 3.79 mill/uL (4.20-5.40); White Blood Cell (WBC) Count 8.3 thou/uL (4.8-10.8)
[2018-02-22 05:13] LABS: Anion Gap 9 mmol/L (10-20); BUN (Urea Nitrogen) 10 mg/dL (7.0-18.7); Calc. Creatinine Clearance 157 mL/min (70-130); Carbon Dioxide 31 mmol/L (22-29); Chloride 101 mmol/L (98-107); Estimated GFR-MDRD Greater than 90; Glucose 104 mg/dL (70-105); Potassium 3.5 mmol/L (3.5-5.1); Sodium 137 mmol/L (136-145)
[2018-02-22] MEDS: HYDROcodone/Acetaminophen 5/325 mg Tablet PO PRN ×4 (05:30→21:15)
--- NOTE | 2018-02-22 08:08 | PDOC.FM ---
- Subjective Subjective: 47 F here with a facial abscess s/p I&D by OMFS post op day 5. Pt states that her pain is well controlled, but complains of a headache that onset yesterday and improved with Fioricet. Otherwise, pt denies any new symptoms and has no specific complaint. She did not walk yesterday dt her headache, however states that she plans to get out of bed today. - Objective MAR Reviewed: Yes Vital Signs & Weight: Vital Signs (12 hours) Temp Pulse Resp BP Pulse Ox 02/22/18 07:37 98 F 73 18 164/100 H 92 L 02/22/18 07:31 98.3 F 73 16 164/100 H 94 L Weight Admit Weight 98.2 kg Weight 98.2 kg I&O: 02/21/18 02/22/18 02/23/18 06:59 06:59 06:59 Intake Total 3020 2900 Balance 3020 2900 Result Diagrams: 02/22/18 04:34 02/22/18 04:34 <Huey Cook - Last Filed: 02/22/18 08:05> - Objective Vital Signs & Weight: Vital Signs (12 hours) Temp Pulse Resp BP BP BP Pulse Ox 02/22/18 17:29 166/89 H 02/22/18 13:46 73 173/108 H 02/22/18 08:00 98 F 73 18 92 L 02/22/18 07:37 98 F 73 18 164/100 H 92 L 02/22/18 07:31 98.3 F 73 16 164/100 H 94 L Weight Admit Weight 98.2 kg Weight 98.2 kg I&O: 02/21/18 02/22/18 02/23/18 06:59 06:59 06:59 Intake Total 3020 2900 1740 Balance 3020 2900 1740 Result Diagrams: 02/22/18 04:34 02/22/18 04:34 <Angela Lua - Last Filed: 02/22/18 17:39> Phys Exam - Physical Examination Constitutional: NAD HEENT: PERRLA, moist MMs Dressing in place and clean Neck: supple, full ROM Respiratory: clear to auscultation bilateral Cardiovascular: RRR, no significant murmur Gastrointestinal: soft, non-tender, no distention, positive bowel sounds Musculoskeletal: no edema Neurological: non-focal, normal sensation, moves all 4 limbs Psychiatric: normal affect, A&O x 3 Skin: no rash <Huey Cook - Last Filed: 02/22/18 08:05> Dx/Plan (1) Abscess of face Code(s): L02.01 - CUTANEOUS ABSCESS OF FACE Status: Acute (2) Bipolar 1 disorder Code(s): F31.9 - BIPOLAR DISORDER, UNSPECIFIED Status: Chronic (3) Facial cellulitis Code(s): L03.211 - CELLULITIS OF FACE Status: Acute (4) Chronic obstructive pulmonary disease Status: Chronic (5) Gastroesophageal reflux disease Code(s): K21.9 - GASTRO-ESOPHAGEAL REFLUX DISEASE WITHOUT ESOPHAGITIS Status: Chronic (6) Hypertension Code(s): I10 - ESSENTIAL (PRIMARY) HYPERTENSION Status: Chronic (7) Schizoaffective disorder Code(s): F25.9 - SCHIZOAFFECTIVE DISORDER, UNSPECIFIED Status: Chronic (8) Sepsis Code(s): A41.9 - SEPSIS, UNSPECIFIED ORGANISM Status: Resolved - Plan Plan: Sepsis 2/2 Facial Cellulitis and Possible Abscess - Patient failed outpatient Clindamycin and is now s/p surgical I&D with Dr. Charles - Blood cx negative, wound culture grew MRSA, sensitive to vancomycin - Pain management with Ibuprofen and [place], currently well managed - Will move to PO abx based on OMFS recs New Diagnosis of T2DM - HgA1c 10.7 - BG below 200 since starting insulin, no hypoglycemic episodes. Continue current insulin regimen - monitor ACHS accuchecks - Outpt management recommended COPD - not currently on any home inhalers - normal lung exam - has not needed albuterol MAG - not on CPAP at home but reports she is supposed to be - CPAP ordered, pt refuses to wear the mask Bipolar DO/Schizophrenia - patient sees [facility] for her behavioral health, but has not been on any meds since 08/2017 - Continue Buspar and monitor GERD - continue home protonix Tobacco Use - phone counselor on cessation Dispo: pt medically ready for dc when she is moved to oral abx per OMFS recommendation <Huey Cook - Last Filed: 02/22/18 08:05> Attending Addendum - Attending Addendum Date/Time: 02/22/18 0205 I personally evaluated the patient and discussed the management with Dr. Cook and Dr. Baum I agree with the History, Examination, Assessment and Plan documented above with any addition or exceptions noted below. 47 yo female with history of multiple Staph abscesses presents with orofacial infection s/p surgical I&D Today reports neck and head pain. Will address with OMFS. Will treat pain. Will possibly be able to switch to PO antibx. Will again address with OMFS. BPs have been controlled with current regiment. Elevations appear to be related to pain. Monitor. Juan <Angela Lua - Last Filed: 02/22/18 17:39>
[2018-02-22] MEDS: Nicotine 21 MG PATCH TD SCH (08:56)
[2018-02-22] MEDS: metFORMIN 500 MG TAB PO SCH ×2 (08:56→17:28)
[2018-02-22] MEDS: busPIRone HCl 10 MG TAB PO SCH ×3 (08:56→21:14)
[2018-02-22] MEDS: Chlorhexidine Gluconate 15 ML UDCUP SSP SCH ×2 (08:56→21:16)
[2018-02-22] MEDS: Vancomycin HCl 1.75 GM in Sodium Chloride 0.9% 500 ML IVPB SCH (08:57)
[2018-02-22] MEDS: Insulin Detemir 100 UNITS/ML 10 UNITS in Pre-Filled Syringe 1 EACH SC SCH (08:58)
[2018-02-22] MEDS: Ondansetron HCl/PF 4 MG/2 ML Vial IVP PRN ×3 (09:01→21:21)
[2018-02-22] MEDS ORDERED: Amlodipine 5 MG TAB PO SCH (12:53)
[2018-02-22] MEDS ORDERED: hydrALAZINE 20 MG/ML VIAL SLOW IVP PRN (12:54)
--- NOTE | 2018-02-22 14:42 | PRG ---
DATE OF SERVICE: 02/22/2018 SUBJECTIVE: No acute 24-hour events. Patient still complains of nausea and headache, no vomiting. OBJECTIVE: The patient's vital signs have been stable over the last 24 hours. Her T current is 98, T-max 98.3. Her blood pressure has been running high 173/108 currently, pulse 73, sating 94% on room air. She is awake, alert, and oriented x3. She does have a large swelling still of the right cheek that is tender to palpation and slightly smaller than yesterday, but is still quite firm and celluli tic. The area of cellulitis has decreased and is more localized in the cheek, does not spread to the periorbital area or into the neck anymore. Her opening is good. There is no difficulty swallowing. Floor of mouth is soft. LABORATORY DATA: White count today is 8.3, down from 9.4. Cultures have grown MRSA resistant to Sal trim. ASSESSMENT: The patient slowly improving, status post I and D of right facial abscess found to be MR SA positive, culture sensitive to Bactrim and doxycycline. PLAN: I would recommend switching to Bactrim-DS for p.o. antibiotic and we will continue to follow.
[2018-02-22] MEDS: Sulfameth/Trimethoprim DS 800-160mg TAB PO SCH (21:15)
[2018-02-23] MEDS: Ondansetron HCl/PF 4 MG/2 ML Vial IVP PRN ×2 (04:23→12:49)
[2018-02-23] MEDS: HYDROcodone/Acetaminophen 5/325 mg Tablet PO PRN ×2 (04:23→08:31)
[2018-02-23 04:50] LABS: #Basophils 0.1 thou/uL (0.0-0.2); #Eosinphils 0.4 thou/uL (0.0-0.7); #Monocytes 0.7 thou/uL (0.11-0.59); #Neutrophils 5.3 thou/uL (1.40-6.50); %Eosinophils 4.6 % (0.0-10.0); %Lymphocytes 23.6 % (21.0-51.0); %Monocytes 8.4 % (0.0-10.0); %Neutrophils 62.5 % (42.0-75.0); Mean Corpuscular HGB CONC 32.8 g/dL (32.0-36.0); Mean Corpuscular Volume 91.5 fl (81.0-99.0); Mean Platelet Volume 8.7 fL (7.4-10.4); Platelet Count 238 thou/uL (130-400); RBC Distribution Width 12.3 % (11.5-14.5); Red Blood Cell (RBC) Count 3.99 mill/uL (4.20-5.40); White Blood Cell (WBC) Count 8.4 thou/uL (4.8-10.8)
[2018-02-23 05:08] LABS: Anion Gap 9 mmol/L (10-20); BUN (Urea Nitrogen) 6 mg/dL (7.0-18.7); Calc. Creatinine Clearance 167 mL/min (70-130); Calcium 9.6 mg/dL (7.8-10.44); Carbon Dioxide 33 mmol/L (22-29); Chloride 100 mmol/L (98-107); Estimated GFR-MDRD Greater than 90; Glucose 98 mg/dL (70-105); Potassium 3.4 mmol/L (3.5-5.1); Sodium 139 mmol/L (136-145)
[2018-02-23] MEDS: Insulin Detemir 100 UNITS/ML 10 UNITS in Pre-Filled Syringe 1 EACH SC SCH (08:31)
[2018-02-23] MEDS: Chlorhexidine Gluconate 15 ML UDCUP SSP SCH (08:32)
[2018-02-23] MEDS: busPIRone HCl 10 MG TAB PO SCH ×2 (08:32→16:23)
[2018-02-23] MEDS: metFORMIN 500 MG TAB PO SCH ×2 (08:32→16:23)
[2018-02-23] MEDS: Sulfameth/Trimethoprim DS 800-160mg TAB PO SCH (08:32)
[2018-02-23] MEDS: Nicotine 21 MG PATCH TD SCH (08:32)
--- NOTE | 2018-02-23 08:53 | PDOC.FM ---
- Subjective Subjective: 47 yo F s/p I&D of right buccal mucosa POD 6. Pt also has a new dx of DM2 this hospitalization. She was moved to oral abx yesterday. Today she complains of continued headache. She denies any other new or worsening symptoms. There were no acute events over night. - Objective Vital Signs & Weight: Vital Signs (12 hours) Temp Pulse Resp BP Pulse Ox 02/23/18 07:32 98.2 F 90 18 161/79 H 94 L 02/23/18 04:00 98.1 F 85 18 167/80 H 92 L Weight Admit Weight 98.2 kg Weight 98.2 kg I&O: 02/22/18 02/23/18 02/24/18 06:59 06:59 06:59 Intake Total 2900 1740 Balance 2900 1740 Result Diagrams: 02/23/18 04:16 02/23/18 04:16 <Huey Cook - Last Filed: 02/23/18 08:45> - Objective Vital Signs & Weight: Vital Signs (12 hours) Temp Pulse Resp BP Pulse Ox 02/23/18 08:00 98.2 F 90 18 02/23/18 07:32 98.2 F 90 18 161/79 H 94 L 02/23/18 04:00 98.1 F 85 18 167/80 H 92 L Weight Admit Weight 98.2 kg Weight 98.2 kg I&O: 02/22/18 02/23/18 02/24/18 06:59 06:59 06:59 Intake Total 2900 1740 Balance 2900 1740 Result Diagrams: 02/23/18 04:16 02/23/18 04:16 <Angela Lua - Last Filed: 02/23/18 15:05> Phys Exam - Physical Examination Constitutional: NAD HEENT: moist MMs dressing clean and in place Neck: supple, full ROM Respiratory: clear to auscultation bilateral Cardiovascular: RRR, no significant murmur Gastrointestinal: soft, non-tender, no distention, positive bowel sounds Musculoskeletal: no edema Neurological: non-focal, moves all 4 limbs Psychiatric: normal affect, A&O x 3 Skin: no rash <Huey Cook - Last Filed: 02/23/18 08:45> Dx/Plan (1) Abscess of face Code(s): L02.01 - CUTANEOUS ABSCESS OF FACE Status: Acute (2) Bipolar 1 disorder Code(s): F31.9 - BIPOLAR DISORDER, UNSPECIFIED Status: Chronic (3) Facial cellulitis Code(s): L03.211 - CELLULITIS OF FACE Status: Acute (4) Chronic obstructive pulmonary disease Status: Chronic (5) Gastroesophageal reflux disease Code(s): K21.9 - GASTRO-ESOPHAGEAL REFLUX DISEASE WITHOUT ESOPHAGITIS Status: Chronic (6) Hypertension Code(s): I10 - ESSENTIAL (PRIMARY) HYPERTENSION Status: Chronic (7) Schizoaffective disorder Code(s): F25.9 - SCHIZOAFFECTIVE DISORDER, UNSPECIFIED Status: Chronic (8) Sepsis Code(s): A41.9 - SEPSIS, UNSPECIFIED ORGANISM Status: Resolved - Plan Plan: Sepsis 2/2 Facial Cellulitis and Possible Abscess - Moved to oral abx yesterday. - Patient failed outpatient Clindamycin and is now s/p surgical I&D with Dr. Charles. Sepsis resolved - Blood cx negative, wound culture grew MRSA, sensitive to vancomycin - Pain management with scheduled Ibuprofen and prn [place], currently well managed New Diagnosis of T2DM - HgA1c 10.7 - BG below 200 since starting insulin, no hypoglycemic episodes. Continue current insulin regimen - monitor ACHS accuchecks - Outpt management recommended HTN - Start on lisinopril today and work to control pain COPD - not currently on any home inhalers - normal lung exam - has not needed albuterol MAG - not on CPAP at home but reports she is supposed to be - CPAP ordered, pt refuses to wear the mask Bipolar DO/Schizophrenia - patient sees [facility] for her behavioral health, but has not been on any meds since 08/2017 - Continue Buspar and monitor GERD - continue home protonix Tobacco Use - family life counselor on cessation Dispo: pt medically ready for dc, will discuss discharge plan with OMFS today <Huey Cook - Last Filed: 02/23/18 08:45> Attending Addendum - Attending Addendum Date/Time: 02/23/18 1500 I personally evaluated the patient and discussed the management with Dr. Cook and Dr. Baum I agree with the History, Examination, Assessment and Plan documented above with any addition or exceptions noted below. 47 yo female with history of multiple Staph abscesses presents with orofacial infection s/p surgical I&D Increased facial pain, induration, and swelling today on exam. Afebrile. WBC WNL. Now on oral antibx. Will have wound packing changed today. MD to be present during change. Will address concerns with OMFS. If no purulents or tracking could consider continuing antibx only but otherwise might consider surgical evaluation. Will await recs. Patient continued to remain HTN. Will start low dose BP med. Has received DM education. Glucose stable. Will follow up outpatient. Needs DM supples at home. Juan <Angela Lua - Last Filed: 02/23/18 15:05>
[2018-02-23] MEDS ORDERED: Lisinopril 5 MG TAB PO SCH (09:00)
[2018-02-23] MEDS: Ibuprofen 800 MG TAB PO SCH ×2 (09:48→16:23)
[2018-02-23 16:10] VITALS: BP 152/95; TEMP 98.7
--- NOTE | 2018-02-24 13:26 | DIS-2 ---
DATE OF ADMISSION: 02/17/2018 DATE OF DISCHARGE: 02/23/2018 RESIDENT: Huey Cook DO ADMITTING ATTENDING: Alla Crystal DO DISCHARGE ATTENDING: Angela Lua MD CONSULTATIONS: Jon Charles DDS PROCEDURES: Incision and drainage of a right facial abscess and extraction of teeth 3, 5, 6 29, 30, and 31. PRIMARY DIAGNOSES: 1. Facial abscess and cellulitis. 2. Sepsis secondary to #1. SECONDARY DIAGNOSES: 1. Hypertension. 2. DM2 3. Bipolar disorder. 4. Schizoaffective disorder. 5. Chronic obstructive pulmonary disease. 6. Gastroesophageal reflux disease. DISCHARGE MEDICATIONS: Bactrim-DS 1 p.o. b.i.d. x14 days, BuSpar 15 mg p.o. t.i.d., venlafaxine 75 mg p.o. daily, Latuda 40 mg p.o. at bedtime, Cogentin 2 mg p.o. b.i.d., Protonix 40 mg p.o. daily, Lasix 40 mg p.o. daily, Saphris 5 mgb.i.d. p.r.n., Levemir 10 units subcu q.a.m., Motrin 800 mg p.o. q.8 hours p.r.n. pain, lisinopril 10 mg p.o. daily. DISCONTINUED MEDICATIONS: None. HOSPITAL COURSE: This is a 47-year-old female who was transferred to this facility from [place] with concern of a facial cellulitis. Prior to presentation in the emergency room, she had 5 days of symptoms that she self- treated with a bottle of clindamycin that she had in a house; however, this did not have her symptoms continued and begin to worsen until she was concerned of emergency room at which time they transferred to this facility. Imaging at the time of admission included a CT that found prominent soft tissue swelling over the right maxillary region and right parotid with a thickening of the right mastoid and right parotid. No organized fluid collections were identified. OMFS was consulted on the day of admission for evaluation. They determined that there is a palpable fluctuance on exam and that surgery was appropriate. The patient had a head surgery same day on 02/17/2018 as detailed above in procedures. After surgery, the patient was put on vancomycin due to the extensive nature of the infection as found in the operating room. The patient was kept on IV antibiotics from 02/17 until 02/22. At which point, she was transitioned over to Bactrim and instructed to follow up in outpatient setting. During hospitalization, the patient's elevated blood glucose was noted and the A1c was ordered which resulted in 10.7. This was a new diagnosis of type 2 diabetes. Due to the level of elevated A1c, the patient was started on insulin and titrated until blood glucose was in the normal range. The patient tolerated insulin well and blood glucose was generally well maintained throughout the remainder of the hospitalization. It is recommended to the patient that she follow up with her primary care physician for continued outpatient management of what is a chronic disease. Regarding the patient's schizoaffective and bipolar disorders, the patient remained asymptomatic throughout the hospitalization; however, it was recommended the patient restart her medications that she had not been taking at home and follow up with her primary care provider and psychiatric provider in the outpatient setting. DISPOSITION: Stable. DISCHARGE INSTRUCTIONS: 1. Location: Home. 2. Diet: Low carbohydrate, heart healthy. 3. Activity: Ad-lester. 4. Followup: Follow up with a PCP within 1 week. LUCIANA
== END 2018-02-23 16:55 | disposition home or self-care (01) | DRG 872 ==
LOC: ERS 08:25 → T4-A 09:19 → ERS 14:07 → T4-A 14:07
PROVIDERS: ADMIT Family Medicine; ATTEND Family Medicine
PROC: 0C940ZX Drainage of Buccal Mucosa, Open Approach, Diagnostic (ICD-10-PCS; principal; 2018-02-17)
PROC: 0H91XZX Drainage of Face Skin, External Approach, Diagnostic (ICD-10-PCS; 2018-02-17)
PROC: 0CDXXZ1 Extraction of Lower Tooth, Multiple, External Approach (ICD-10-PCS; 2018-02-17)
PROC: 0CDWXZ1 Extraction of Upper Tooth, Multiple, External Approach (ICD-10-PCS; 2018-02-17)
DX: A41.02 Sepsis due to Methicillin resistant Staphylococcus aureus (principal); E11.65 Type 2 diabetes mellitus with hyperglycemia; L03.211 Cellulitis of face; L02.01 Cutaneous abscess of face; I10 Essential (primary) hypertension; K02.9 Dental caries, unspecified; K05.6 Periodontal disease, unspecified; B95.62 Methicillin resistant Staphylococcus aureus infection as the cause of diseases classified elsewhere; Z16.29 Resistance to other single specified antibiotic; F31.9 Bipolar disorder, unspecified; F20.9 Schizophrenia, unspecified; J44.9 Chronic obstructive pulmonary disease, unspecified; K21.9 Gastro-esophageal reflux disease without esophagitis; G47.33 Obstructive sleep apnea (adult) (pediatric); F41.9 Anxiety disorder, unspecified; F17.210 Nicotine dependence, cigarettes, uncomplicated; F19.11 Other psychoactive substance abuse, in remission
CPT/HCPCS: 36415; 36416; 71045; 80048; 80202; 82607; 82747; 83036; 85025; 86850; 86900; 86901; 87040; 87070; 87077; 87116; 87186; 87205; 87206; 90471; 90682; 90732; 93005; 94640; 94660; 96361; 96365; 96375; 96376; A4216; G0008; G0009; J1815; J2001; J2060; J2270; J2405; J2704; J3010; J3370; J3490; J7050; J7620; Q2036

== ENCOUNTER 2018-06-06 11:35 | Emergency (ER) | payer OTHER ==
[2018-06-06] MEDS ORDERED: Meclizine HCl 25 MG TAB ONE (12:04)
[2018-06-06] MEDS ORDERED: Acetaminophen 500 MG TAB ONE (12:04)
[2018-06-06 12:47] LABS: #Basophils 0.1 thou/uL (0.0-0.2); #Eosinphils 0.2 thou/uL (0.0-0.7); #Lymphocytes 2.3 thou/uL (1.20-3.40); #Monocytes 0.7 thou/uL (0.11-0.59); #Neutrophils 8.2 thou/uL (1.40-6.50); %Basophils 1.2 % (0.0-1.0); %Eosinophils 1.9 % (0.0-10.0); %Lymphocytes 20.1 % (21.0-51.0); %Monocytes 5.7 % (0.0-10.0); %Neutrophils 71.1 % (42.0-75.0); Hemoglobin 13.7 g/dL (12.0-16.0); Mean Corpuscular HGB CONC 32.5 g/dL (32.0-36.0); Mean Corpuscular Hemoglobin 29.9 pg (27.0-31.0); Mean Corpuscular Volume 92.1 fL (78.0-98.0); Platelet Count 256 thou/uL (130-400); RBC Distribution Width 12.2 % (11.5-14.5); Red Blood Cell (RBC) Count 4.59 mill/uL (4.20-5.40); White Blood Cell (WBC) Count 11.5 thou/uL (4.8-10.8)
[2018-06-06 12:54] LABS: ALT (SGPT) 32 U/L (8-55); AST (SGOT) 25 U/L (5-34); Albumin 3.6 g/dL (3.5-5.0); Alkaline Phosphatase 109 U/L (40-150); Anion Gap 11 mmol/L (10-20); BUN (Urea Nitrogen) 11 mg/dL (7.0-18.7); Bilirubin, Total 0.3 mg/dL (0.2-1.2); CK (CPK) 27 U/L (29-168); Calc. Creatinine Clearance 0 mL/min (70-130); Calcium 9.1 mg/dL (7.8-10.44); Carbon Dioxide 24 mmol/L (22-29); Chloride 105 mmol/L (98-107); Estimated GFR-MDRD Greater than 90; Globulin 3.7 g/dL (2.4-3.5); Glucose 117 mg/dL (70-105); Potassium 4.1 mmol/L (3.5-5.1); Protein, Total 7.3 g/dL (6.0-8.3); Sodium 136 mmol/L (136-145)
--- NOTE | 2018-06-06 13:13 | CT ---
CT BRAIN WITHOUT CONTRAST: Date: 06/06/18 HISTORY: Dizziness. FINDINGS: Comparison made with exam of 07/06/13. No evidence of infarct, hemorrhage, midline shift, or abnormal extra-axial fluid collections are seen . The ventricular size is normal and the basilar cisterns are patent. The bony calvarium is intact. T he visualized paranasal sinuses and mastoid air cells are well aerated. IMPRESSION: No CT evidence of acute intracranial process. POS: [facility]
== END 2018-06-06 13:25 | disposition home or self-care (01) ==
LOC: SCSER 11:35
DX: H81.13 Benign paroxysmal vertigo, bilateral (principal); E11.9 Type 2 diabetes mellitus without complications; I10 Essential (primary) hypertension; G43.909 Migraine, unspecified, not intractable, without status migrainosus; D64.9 Anemia, unspecified; F41.9 Anxiety disorder, unspecified; F31.9 Bipolar disorder, unspecified; Z79.899 Other long term (current) drug therapy; Z79.4 Long term (current) use of insulin
CPT/HCPCS: 36416; 70450; 80053; 82010; 82550; 85025; 96360; 36415-59

== ENCOUNTER 2018-07-08 10:36 | Outpatient (CLI) | payer OTHER | END 2018-07-08 10:37 | disposition home or self-care (01) | LOC: BICRAD 10:36 | PROVIDERS: ATTEND Family Medicine | DX: M25.562 Pain in left knee (principal) ==

== ENCOUNTER 2018-11-10 10:27 | Emergency (ER) | payer OTHER ==
[2018-11-10 11:15] LABS: #Basophils 0.1 thou/uL (0.0-0.2); #Eosinphils 0.3 thou/uL (0.0-0.7); #Neutrophils 4.9 thou/uL (1.40-6.50); %Eosinophils 3.1 % (0.0-10.0); %Lymphocytes 32.4 % (21.0-51.0); %Monocytes 10.8 % (0.0-10.0); %Neutrophils 52.7 % (42.0-75.0); Hemoglobin 13.9 g/dL (12.0-16.0); Mean Corpuscular Hemoglobin 30.2 pg (27.0-31.0); Mean Corpuscular Volume 91.5 fL (78.0-98.0); Mean Platelet Volume 9.3 fL (7.4-10.4); Platelet Count 295 thou/uL (130-400); RBC Distribution Width 12.5 % (11.5-14.5); Red Blood Cell (RBC) Count 4.61 mill/uL (4.20-5.40); White Blood Cell (WBC) Count 9.3 thou/uL (4.8-10.8)
--- NOTE | 2018-11-10 11:24 | RAD ---
PORTABLE UPRIGHT FRONTAL CHEST RADIOGRAPH: Date: 11-10-18 Comparison: 04-14-18 History: Chest pain, diaphoresis and nausea. FINDINGS: Lungs are clear. Heart and mediastinal contours unremarkable. IMPRESSION: No acute findings. POS: [facility]
[2018-11-10 11:42] LABS: ALT (SGPT) 44 U/L (8-55); AST (SGOT) 37 U/L (5-34); Albumin 3.9 g/dL (3.5-5.0); Alkaline Phosphatase 137 U/L (40-150); Anion Gap 15 mmol/L (10-20); BUN (Urea Nitrogen) 12 mg/dL (7.0-18.7); Bilirubin, Total 0.4 mg/dL (0.2-1.2); CK (CPK) 70 U/L (29-168); Calc. Creatinine Clearance 0 mL/min (70-130); Calcium 9.8 mg/dL (7.8-10.44); Carbon Dioxide 26 mmol/L (22-29); Chloride 102 mmol/L (98-107); Estimated GFR-MDRD 71; Globulin 4.3 g/dL (2.4-3.5); Glucose 123 mg/dL (70-105); Lipase 11 U/L (8-78); Potassium 3.9 mmol/L (3.5-5.1); Protein, Total 8.2 g/dL (6.0-8.3); Sodium 139 mmol/L (136-145)
[2018-11-10] MEDS ORDERED: methylPREDNISolone Sod Succ/PF 125 MG/2 ML VIAL ONE (11:52)
[2018-11-10] MEDS ORDERED: Water For Inject, Bacteriostat 30 ML ONE (12:19)
--- NOTE | 2018-11-10 13:26 | CT ---
CT CHEST WITHOUT CONTRAST: Multiple axial tomograms are obtained through the chest without IV enhancement. INDICATION: Cough, chest pain. FINDINGS: Lungs are clear. There is no evidence of infiltrate or effusion. No pulmonary mass or nodule identi fied. Mediastinum unremarkable. Images through the upper abdomen unremarkable. IMPRESSION: Unremarkable CT chest. POS: [facility]
--- NOTE | 2018-11-12 13:48 | EKG ---
Test Reason : CHEST PAIN Blood Pressure : / mmHG Vent. Rate : 099 BPM Atrial Rate : 099 BPM P-R Int : 124 ms QRS Dur : 078 ms QT Int : 372 ms P-R-T Axes : 063 023 058 degrees QTc Int : 477 ms Normal sinus rhythm Possible Left atrial enlargement Borderline ECG Confirmed by MARILIA TAPIA ([id number]), state editor JULIA COLLINS ([id number]) on 11/12/2018 1:48:03 PM Referred By: PIOTR TAPIA Confirmed By:MARILIA TAPIA
== END 2018-11-10 14:10 | disposition home or self-care (01) ==
LOC: ERS 10:27
DX: J44.1 Chronic obstructive pulmonary disease with (acute) exacerbation (principal); E11.9 Type 2 diabetes mellitus without complications; G47.30 Sleep apnea, unspecified; G43.909 Migraine, unspecified, not intractable, without status migrainosus; F41.9 Anxiety disorder, unspecified; F31.9 Bipolar disorder, unspecified; I10 Essential (primary) hypertension; D64.9 Anemia, unspecified; Z79.4 Long term (current) use of insulin; Z79.899 Other long term (current) drug therapy
CPT/HCPCS: 71045; 71250; 80053; 82550; 83690; 84484; 85025; 85379; 93005; 94640; 96374; J2930; J7620

== ENCOUNTER 2018-12-20 17:12 | Emergency (ER) | payer OTHER | END 2018-12-20 17:52 | disposition home or self-care (01) | LOC: SCSER 17:12 | DX: J34.0 Abscess, furuncle and carbuncle of nose (principal); J44.9 Chronic obstructive pulmonary disease, unspecified; E11.9 Type 2 diabetes mellitus without complications; G47.30 Sleep apnea, unspecified; I10 Essential (primary) hypertension; G43.909 Migraine, unspecified, not intractable, without status migrainosus; F41.9 Anxiety disorder, unspecified; F31.9 Bipolar disorder, unspecified; F43.10 Post-traumatic stress disorder, unspecified; F17.210 Nicotine dependence, cigarettes, uncomplicated; Z79.4 Long term (current) use of insulin; Z79.899 Other long term (current) drug therapy ==

== ENCOUNTER 2020-09-25 19:09 | Emergency (ER) | payer OTHER | END 2020-09-25 23:48 | disposition left against medical advice (07) | LOC: ERS 19:09 | DX: Z53.21 Procedure and treatment not carried out due to patient leaving prior to being seen by health care provider (principal) | CPT/HCPCS: 93005 ==

== ENCOUNTER 2021-02-06 03:53 | Observation (INO) | payer OTHER ==
[2021-02-06] MEDS ORDERED: Aspirin 325 MG TAB ONE (04:24)
[2021-02-06] MEDS ORDERED: Lorazepam 2 MG/ML VIAL ONE (04:24)
[2021-02-06 04:28] LABS: #Basophils 0.1 thou/uL (0.0-0.2); #Eosinphils 0.1 thou/uL (0.0-0.7); #Lymphocytes 1.8 thou/uL (1.20-3.40); #Neutrophils 9.8 thou/uL (1.40-6.50); %Basophils 0.2 % (0.0-1.0); %Eosinophils 1.4 % (0.0-10.0); %Monocytes 7.3 % (0.0-10.0); %Neutrophils 76.3 % (42.0-75.0); Hemoglobin 14.3 g/dL (12.0-16.0); Mean Corpuscular HGB CONC 34.5 g/dL (32.0-36.0); Mean Corpuscular Hemoglobin 30.8 pg (27.0-31.0); Mean Corpuscular Volume 89.2 fL (78.0-98.0); Mean Platelet Volume 9.5 fL (7.4-10.4); Platelet Count 150 thou/uL (130-400); RBC Distribution Width 13.1 % (11.5-14.5); Red Blood Cell (RBC) Count 4.66 mill/uL (4.20-5.40)
[2021-02-06 04:48] LABS: ALT (SGPT) 28 U/L (8-55); AST (SGOT) 25 U/L (5-34); Albumin 3.6 g/dL (3.5-5.0); Alkaline Phosphatase 143 U/L (40-110); Anion Gap 15 mmol/L (10-20); BUN (Urea Nitrogen) 9 mg/dL (9.8-20.1); Bilirubin, Total 0.6 mg/dL (0.2-1.2); Calc. Creatinine Clearance 0 mL/min (70-130); Calcium 8.7 mg/dL (7.8-10.44); Carbon Dioxide 21 mmol/L (22-29); Chloride 103 mmol/L (98-107); Globulin 4.2 g/dL (2.4-3.5); Glucose 208 mg/dL (70-105); Lipase 10 U/L (8-78); Potassium 3.7 mmol/L (3.5-5.1); Protein, Total 7.8 g/dL (6.0-8.3); Sodium 135 mmol/L (136-145)
[2021-02-06] MEDS ORDERED: Labetalol HCl 100 MG/20 ML VIAL ONE (05:29)
[2021-02-06 05:33] LABS: Acetaminophen Less than 6.0 mcg/mL (10.0-30.0); Alcohol Less than 10 mg/dL (Less than 10); Salicylate Less than 8.0 mg/dL (15.0-30.0)
[2021-02-06 06:58] LABS: Bilirubin Negative (Negative); Blood, Urine Negative (Negative); Clarity Clear (Clear); Glucose, Urine (Dipstick) 100 mg/dL (Negative); Ketone, Urine Negative (Negative); Leukocyte Negative Leu/uL (Negative); Nitrite Negative (Negative); Protein, Urine (Dipstick) 10 mg/dL (Neg-Trace); Specific Gravity, Urine 1.022 (1.002-1.036); Urobilinogen Normal mg/dL (Less than 2); pH, Urine 6.5 (5.0-9.0)
[2021-02-06 07:08] LABS: Amphetamine Not Detected (NotDetected); Barbiturates Screen Not Detected (NotDetected); Benzodiazepine Screen Not Detected (NotDetected); Cocaine Metabolite Screen Not Detected (NotDetected); Medtox Reader # READER 4; Methadone Not Detected (NotDetected); Methamphetamine Detected (NotDetected); Opiate Screen Not Detected (NotDetected); Oxycodone Screen Not Detected (NotDetected); Phencyclidine (PCP) Not Detected (NotDetected); THC/Cannabinoid Screen Not Detected (NotDetected); Tricyclic Screen Not Detected (NotDetected)
[2021-02-06 07:09] LABS: Medtox Control Line Valid? VALID (VALID)
[2021-02-06 07:36] LABS: Troponin I 0.019 ng/mL (< 0.028)
[2021-02-06] MEDS ORDERED: Ondansetron ODT 4 MG TAB PO PRN (08:29)
[2021-02-06] MEDS ORDERED: Calcium Carbonate 500 MG ChewTAB PO PRN (08:29)
[2021-02-06] MEDS ORDERED: Haloperidol Lactate 5 MG/ML VIAL IM PRN (08:33)
[2021-02-06 09:25] LABS: Hemoglobin A1c 9.5 % (4.0-6.0)
[2021-02-06] MEDS: Lactated Ringer's 1,000 ML IV SCH ×2 (09:37→17:26)
[2021-02-06 10:41] LABS: Cardiac Risk 2.4 (Less than 4.5)
[2021-02-06 10:45] LABS: Troponin I 0.014 ng/mL (< 0.028)
[2021-02-06] MEDS: Nicotine 14 MG PATCH TD SCH (11:20)
[2021-02-06] MEDS ORDERED: hydrOXYzine 25 MG TAB PO PRN (11:33)
[2021-02-06] MEDS ORDERED: Dextrose 5% in Water 1,000 ML IV PRN (11:40)
[2021-02-06] MEDS ORDERED: Dextrose 50% Abboject 50 ML SYRINGE SLOW IVP PRN (11:40)
[2021-02-06] MEDS ORDERED: HumaLOG 300 UNITS/3 ML VIAL SC PRN ×2 (11:40)
[2021-02-06] MEDS ORDERED: Escitalopram Oxalate 20 mg Tablet PO SCH (11:45)
[2021-02-06 13:53] LABS: SARS-CoV-2 PCR by NAA Not Detected (NotDetected)
[2021-02-06 14:07] VITALS: BMI 39.8
[2021-02-06] MEDS ORDERED: hydrALAZINE 20 MG/ML VIAL SLOW IVP PRN (16:58)
[2021-02-06] MEDS ORDERED: Amlodipine 10 MG TAB PO SCH (17:00)
[2021-02-06] MEDS ORDERED: Lisinopril 20 MG TAB PO SCH (17:00)
[2021-02-06] MEDS: metFORMIN 500 MG TAB PO SCH (17:26)
[2021-02-06] MEDS: Acetaminophen 325 MG TAB PO PRN (17:26)
[2021-02-06] MEDS ORDERED: Nitroglycerin 0.4 MG TAB (25 Tab Bottle) SL PRN (20:03)
[2021-02-06] MEDS ORDERED: Morphine 2 MG/ML VIAL SLOW IVP PRN (20:04)
[2021-02-06] MEDS ORDERED: Labetalol HCl 100 MG/20 ML VIAL SLOW IVP PRN (20:30)
[2021-02-06] MEDS ORDERED: Lurasidone HCl 40 MG TABLET PO SCH (21:00)
[2021-02-06] MEDS ORDERED: Non-Formulary Item 1 EACH (Insulin Detemir 100 Units/Ml [Levemir] 100 UNITS/ML Vial) SC SCH (21:00)
[2021-02-06] MEDS ORDERED: Insulin Glargine 10 UNITS in Pre-Filled Syringe 1 EACH SC SCH (21:00)
[2021-02-06 21:12] LABS: Troponin I Less than 0.010 ng/mL (< 0.028)
[2021-02-07] MEDS: Lactated Ringer's 1,000 ML IV SCH ×2 (00:50→06:16)
[2021-02-07] MEDS: Acetaminophen 325 MG TAB PO PRN ×2 (00:55→09:55)
[2021-02-07 05:31] LABS: ALT (SGPT) 23 U/L (8-55); AST (SGOT) 26 U/L (5-34); Albumin 3.2 g/dL (3.5-5.0); Alkaline Phosphatase 123 U/L (40-110); Anion Gap 13 mmol/L (10-20); BUN (Urea Nitrogen) 9 mg/dL (9.8-20.1); Bilirubin, Total 0.4 mg/dL (0.2-1.2); Calc. Creatinine Clearance 160 mL/min (70-130); Calcium 8.1 mg/dL (7.8-10.44); Carbon Dioxide 21 mmol/L (22-29); Chloride 105 mmol/L (98-107); Globulin 3.8 g/dL (2.4-3.5); Glucose 167 mg/dL (70-105); Potassium 3.9 mmol/L (3.5-5.1); Sodium 135 mmol/L (136-145)
[2021-02-07] MEDS ORDERED: Amlodipine 10 MG TAB PO SCH (09:00)
[2021-02-07] MEDS ORDERED: Escitalopram Oxalate 10 mg Tablet PO SCH (09:00)
[2021-02-07] MEDS ORDERED: Furosemide 20 MG TAB PO SCH (09:00)
[2021-02-07] MEDS ORDERED: Lisinopril 10 MG TAB PO SCH (09:00)
[2021-02-07] MEDS ORDERED: Regadenoson 0.4 MG/5 ML SYRINGE ONE (10:38)
[2021-02-07] MEDS: metFORMIN 500 MG TAB PO SCH (13:31)
[2021-02-07] MEDS: Nicotine 14 MG PATCH TD SCH (13:32)
[2021-02-07 15:19] VITALS: BP 140/62; TEMP 97.5
== END 2021-02-07 14:00 | disposition home or self-care (01) ==
LOC: ERS 03:53 → 2SW 05:55
PROVIDERS: ADMIT Internal Medicine; ATTEND Internal Medicine
DX: R07.9 Chest pain, unspecified (principal); R06.02 Shortness of breath; I10 Essential (primary) hypertension; F15.129 Other stimulant abuse with intoxication, unspecified; B18.2 Chronic viral hepatitis C; E78.5 Hyperlipidemia, unspecified; F31.9 Bipolar disorder, unspecified; I25.10 Atherosclerotic heart disease of native coronary artery without angina pectoris; E11.9 Type 2 diabetes mellitus without complications; F41.1 Generalized anxiety disorder; G47.33 Obstructive sleep apnea (adult) (pediatric); J44.9 Chronic obstructive pulmonary disease, unspecified; K21.9 Gastro-esophageal reflux disease without esophagitis; F17.200 Nicotine dependence, unspecified, uncomplicated; M17.11 Unilateral primary osteoarthritis, right knee; E66.9 Obesity, unspecified; Z68.39 Body mass index [BMI] 39.0-39.9, adult; Z79.4 Long term (current) use of insulin; Z79.899 Other long term (current) drug therapy; Z88.0 Allergy status to penicillin; Z88.8 Allergy status to other drugs, medicaments and biological substances; Z91.048 Other nonmedicinal substance allergy status; Z20.822 Contact with and (suspected) exposure to COVID-19
CPT/HCPCS: 36415; 36416; 71045; 78452; 80053; 80061; 80306; 80307; 81003; 83036; 83690; 84443; 84484; 85025; 87635; 93005; 93010; 93017; 94760; 96374; 96375; A9500; G0378; J0360; J1815; J2060; J2270; J2785; U0003; U0005

== ENCOUNTER 2022-09-09 13:30 | Emergency (ER) | payer OTHER ==
[2022-09-09] MEDS ORDERED: Nitroglycerin 2% Ointment 1 INCH/1 GM Packet ONE (13:50)
[2022-09-09 14:29] LABS: ALT (SGPT) 33 U/L (8-55); AST (SGOT) 31 U/L (5-34); Albumin 3.7 g/dL (3.5-5.0); Alkaline Phosphatase 132 U/L (40-110); Anion Gap 17 mmol/L (10-20); BUN (Urea Nitrogen) 14 mg/dL (9.8-20.1); Bilirubin, Total 0.4 mg/dL (0.2-1.2); Calc. Creatinine Clearance 0 mL/min (70-130); Calcium 9.4 mg/dL (7.8-10.44); Carbon Dioxide 23 mmol/L (22-29); Chloride 99 mmol/L (98-107); Estimated GFR 85; Globulin 3.9 g/dL (2.4-3.5); Glucose 266 mg/dL (70-105); Lipase 11 U/L (8-78); Potassium 4.7 mmol/L (3.5-5.1); Protein, Total 7.6 g/dL (6.0-8.3); Sodium 134 mmol/L (136-145)
[2022-09-09 14:31] LABS: #Basophils 0.1 thou/uL (0.0-0.2); #Eosinphils 0.3 thou/uL (0.0-0.7); #Monocytes 0.7 thou/uL (0.11-0.59); #Neutrophils 6.4 thou/uL (1.40-6.50); %Basophils 0.5 % (0.0-1.0); %Eosinophils 2.7 % (0.0-10.0); %Lymphocytes 28.9 % (21.0-51.0); %Neutrophils 60.8 % (42.0-75.0); Hemoglobin 14.9 g/dL (12.0-16.0); Mean Corpuscular HGB CONC 33.6 g/dL (32.0-36.0); Mean Corpuscular Hemoglobin 30.2 pg (27.0-31.0); Mean Platelet Volume 9.7 fL (7.4-10.4); Platelet Count 213 thou/uL (130-400); RBC Distribution Width 11.9 % (11.5-14.5); Red Blood Cell (RBC) Count 4.92 mill/uL (4.20-5.40); White Blood Cell (WBC) Count 10.5 thou/uL (4.8-10.8)
[2022-09-09] MEDS ORDERED: Ondansetron PF 4 MG/2 ML Vial ONE (16:28)
[2022-09-09] MEDS ORDERED: Morphine 4 MG/ML VIAL ONE (16:28)
[2022-09-09] MEDS ORDERED: Ketorolac Tromethamine 30 MG/ML VIAL ONE (16:28)
[2022-09-09 17:08] LABS: Troponin I Less than 0.010 ng/mL (< 0.028)
== END 2022-09-09 17:57 | disposition home or self-care (01) ==
LOC: ERS 13:30
DX: M54.12 Radiculopathy, cervical region (principal); R07.89 Other chest pain; I10 Essential (primary) hypertension; E11.9 Type 2 diabetes mellitus without complications; K21.9 Gastro-esophageal reflux disease without esophagitis; Z79.4 Long term (current) use of insulin; Z79.84 Long term (current) use of oral hypoglycemic drugs; Z79.899 Other long term (current) drug therapy; Z85.850 Personal history of malignant neoplasm of thyroid
CPT/HCPCS: 36415; 71045; 80053; 83690; 84484; 85025; 85379; 93005; 94760; 96374; 96375; J1885; J2270; J2405

== ENCOUNTER 2022-10-31 19:45 | Emergency (ER) | payer OTHER ==
[~2022-10-31 19:45] MED LIST changes: -Glycopyrrolate 0.2 MG/ML 5 ML SYRINGE ONE; +Iopamidol-370 76% 500 ML 1 ML ONE; -Lidocaine 1% PF 5 ML VIAL ONE; -Ondansetron HCl/PF 4 MG/2 ML Vial ONE; -PHENYLEPHRINE-NS 100 MCG/ML 10 ML SYRINGE ONE; -Propofol 200 MG/20 ML VIAL ONE; -Succinylcholine Chloride 20 MG/ML 10 ml SYRINGE FS ONE
[2022-10-31] MEDS ORDERED: Morphine 4 MG/ML VIAL ONE (20:22)
[2022-10-31 20:26] LABS: Hemoglobin 14.4 g/dL (12.0-16.0); Mean Corpuscular HGB CONC 33.4 g/dL (32.0-36.0); Mean Corpuscular Hemoglobin 31.4 pg (27.0-31.0); Mean Corpuscular Volume 93.8 fl (78.0-98.0); Mean Platelet Volume 9.9 fL (7.4-10.4); Platelet Count 150 10x3/uL (130-400); Red Blood Cell (RBC) Count 4.58 mill/uL (4.20-5.40); White Blood Cell (WBC) Count 13.3 10x3/uL (4.8-10.8)
[2022-10-31 20:27] LABS: #Basophils 0.1 thou/uL (0.0-0.2); #Eosinphils 0.2 thou/uL (0.0-0.7); #Lymphocytes 4.1 thou/uL (1.20-3.40); #Monocytes 1.2 thou/uL (0.11-0.59); #Neutrophils 7.8 thou/uL (1.40-6.50); %Basophils 0.7 % (0.0-1.0); %Eosinophils 1.3 % (0.0-10.0); %Lymphocytes 30.5 % (21.0-51.0); %Monocytes 9.1 % (0.0-10.0); %Neutrophils 58.4 % (42.0-75.0)
[2022-10-31 20:43] LABS: ALT (SGPT) 34 U/L (8-55); AST (SGOT) 19 U/L (5-34); Albumin 4.2 g/dL (3.5-5.0); Alkaline Phosphatase 131 U/L (40-110); Anion Gap 13 mmol/L (10-20); BUN (Urea Nitrogen) 16 mg/dL (9.8-20.1); Bilirubin, Total 0.4 mg/dL (0.2-1.2); Calc. Creatinine Clearance 0 mL/min (70-130); Calcium 9.5 mg/dL (7.8-10.44); Carbon Dioxide 26 mmol/L (22-29); Chloride 103 mmol/L (98-107); Estimated GFR 99; Globulin 3.8 g/dL (2.4-3.5); Glucose 115 mg/dL (70-105); MDiff Complete? YES; Platelet Clumps SLIGHT; Platelet Morphology Comment Appears Adequate; Potassium 4.3 mmol/L (3.5-5.1); Sodium 138 mmol/L (136-145)
[2022-10-31] MEDS ORDERED: FENTANYL 50 MCG/ML 1 ML VIAL ONE (20:43)
[2022-10-31] MEDS ORDERED: Lidocaine Viscous Sol 2% 15 ml UD Cup ONE (22:41)
[2022-10-31] MEDS ORDERED: Mag-Al 1200 mg/1200 mg/30 ML UDCUP ONE (22:41)
== END 2022-11-01 00:46 ==
LOC: ERS 19:45
DX: R07.9 Chest pain, unspecified (principal); I10 Essential (primary) hypertension; E11.9 Type 2 diabetes mellitus without complications; K21.9 Gastro-esophageal reflux disease without esophagitis; J44.9 Chronic obstructive pulmonary disease, unspecified; I25.10 Atherosclerotic heart disease of native coronary artery without angina pectoris; Z79.899 Other long term (current) drug therapy; Z79.84 Long term (current) use of oral hypoglycemic drugs; Z79.4 Long term (current) use of insulin
CPT/HCPCS: 36415; 71045; 71275; 74174; 80053; 84484; 85025; 85379; 93005; 96374; 96375; J2270; J3010; Q9967

== ENCOUNTER 2023-01-03 16:56 | Emergency (ER) | payer OTHER ==
[2023-01-03] MEDS ORDERED: Acetaminophen 500 MG TAB ONE (17:59)
[2023-01-03 18:03] LABS: #Basophils 0.1 thou/uL (0.0-0.2); #Eosinphils 0.4 thou/uL (0.0-0.7); #Lymphocytes 2.9 thou/uL (1.20-3.40); #Neutrophils 6.4 thou/uL (1.40-6.50); %Basophils 0.9 % (0.0-1.0); %Eosinophils 3.3 % (0.0-10.0); %Lymphocytes 26.9 % (21.0-51.0); %Monocytes 9.5 % (0.0-10.0); %Neutrophils 59.4 % (42.0-75.0); Hemoglobin 13.7 g/dL (12.0-16.0); Mean Corpuscular HGB CONC 34.8 g/dL (32.0-36.0); Mean Corpuscular Hemoglobin 33.4 pg (27.0-31.0); Mean Platelet Volume 9.2 fL (7.4-10.4); Platelet Count 238 10x3/uL (130-400); RBC Distribution Width 11.8 % (11.5-14.5); Red Blood Cell (RBC) Count 4.09 mill/uL (4.20-5.40); White Blood Cell (WBC) Count 10.8 10x3/uL (4.8-10.8)
[2023-01-03 18:23] LABS: ALT (SGPT) 41 U/L (8-55); AST (SGOT) 22 U/L (5-34); Albumin 4.1 g/dL (3.5-5.0); Alkaline Phosphatase 117 U/L (40-110); Anion Gap 15 mmol/L (10-20); BUN (Urea Nitrogen) 21 mg/dL (9.8-20.1); Bilirubin, Total 0.4 mg/dL (0.2-1.2); Calc. Creatinine Clearance 0 mL/min (70-130); Calcium 9.7 mg/dL (7.8-10.44); Carbon Dioxide 24 mmol/L (22-29); Chloride 102 mmol/L (98-107); Estimated GFR 87; Globulin 3.6 g/dL (2.4-3.5); Glucose 117 mg/dL (70-105); Lipase 17 U/L (8-78); Potassium 4.9 mmol/L (3.5-5.1); Protein, Total 7.7 g/dL (6.0-8.3); Sodium 136 mmol/L (136-145)
[2023-01-03] MEDS ORDERED: Ketorolac Tromethamine 30 MG/ML VIAL ONE (18:40)
[2023-01-03 21:11] LABS: Bilirubin Negative (Negative); Blood, Urine Negative (Negative); Clarity Clear (Clear); Glucose, Urine (Dipstick) Normal (Negative); Ketone, Urine Negative (Negative); Leukocyte Negative Leu/uL (Negative); Nitrite Negative (Negative); Protein, Urine (Dipstick) Negative (Neg-Trace); Specific Gravity, Urine 1.013 (1.002-1.036); Urobilinogen Normal mg/dL (Less than 2)
== END 2023-01-03 23:10 | disposition home or self-care (01) ==
LOC: ERS 16:56
DX: M54.2 Cervicalgia (principal); M25.521 Pain in right elbow; M25.561 Pain in right knee; R07.9 Chest pain, unspecified; E11.9 Type 2 diabetes mellitus without complications; I10 Essential (primary) hypertension; E78.5 Hyperlipidemia, unspecified; K21.9 Gastro-esophageal reflux disease without esophagitis; J44.9 Chronic obstructive pulmonary disease, unspecified; Z87.891 Personal history of nicotine dependence; Z79.899 Other long term (current) drug therapy; Z79.4 Long term (current) use of insulin; Z79.84 Long term (current) use of oral hypoglycemic drugs
CPT/HCPCS: 36415; 70450; 71260; 72125; 74177; 80053; 81003; 83690; 84484; 85025; 93005; 96372; J1885; Q9967